=== PATIENT | female | born 1950 | race Caucasian/White ===

== ENCOUNTER 2021-12-28 11:17 | Emergency (ER) | payer MEDICARE, SELFPAY ==
[2021-12-28 11:28] VITALS: BP 219/141; PULSE 65; TEMP 36.6; O2SAT 99; BMI 27.8
[2021-12-28] MEDS: cloNIDine 0.1 mg Tablet PO (12:11)
[2021-12-28] MEDS: lisinopril 20 mg Tablet PO (12:11)
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
[2021-12-28 15:18] VITALS: BP 114/65; PULSE 80; RESP 18; O2SAT 95
== END 2021-12-28 15:20 | disposition home or self-care (01) ==
PROVIDERS: Emergency Provider Emergency Medicine; PCP Internal Medicine
DX: R45.851 Suicidal ideations (principal); I10 Essential (primary) hypertension
CPT/HCPCS: 99283

== ENCOUNTER → 2021-12-31 10:09 | Outpatient (BNVA) | payer MEDICARE, SELFPAY | PROVIDERS: PCP Internal Medicine; Visit Provider Social Worker | DX: F32.A Depression, unspecified (principal) | CPT/HCPCS: 90837; 90834 ==

== ENCOUNTER 2023-02-02 23:31 | Emergency (ER) | payer MEDICARE, SELFPAY ==
[2023-02-02 23:50] VITALS: BP 195/90; PULSE 66; RESP 14; TEMP 36.5; O2SAT 97; BMI 27.3
[2023-02-03 01:56] VITALS: BP 191/98; PULSE 98; RESP 18; O2SAT 98
[2023-02-03 01:58] VITALS: BP 191/98
[2023-02-03] MEDS: cloNIDine 0.1 mg Tablet PO (01:58)
[2023-02-03] MEDS: nitroglycerin 0.4 mg sublingual Tablet SUBLINGUAL (01:59)
[2023-02-03] MEDS: mupirocin oint 22 gm 1 APPLIC TOPICAL (01:59)
--- NOTE | 2023-02-03 02:21 | PC.NURSE ---
MD aware of blood pressure.
[2023-02-03 02:25] VITALS: RESP 18
[2023-02-03] MEDS: oxyCODONE-APAP 5-325 mg Tablet 1 TAB PO (02:25)
--- NOTE | 2023-02-03 02:48 | W.ED.SKABFB ---
HPI - Skin/Abscess/Foreign Bdy General: Chief complaint: Skin/Abscess/Foreign Body Stated complaint: bilateral leg pain Time Seen by Provider: 02/03/23 01:15 Source: patient and other History of Present Illness: 72-year-old female is here with chronic skin ulcers to her bilateral legs. She states that they are very painful. She has been treated on multiple occasions for these with multiple antibiotics and they are just not any better . She denies any fever. She is not vomiting. She is recently been homeless, but has been taken in by a caregiver who brings her to the emergency room this morning. Caregiver also notes that her blood pressure has been high. She has blood pressure medication prescribed, but has not taken more than 1 dose. MD complaint: lesion Onset (ago): week(s) Tetanus up to date: yes Location: LLE and RLE Severity: moderate Quality: burning, stabbing and aching Pain Consistency: constant Relieving factors: none Associated symptoms: Deny fever(s), nausea, rigidity, short of breath or vomiting Review of Systems Const: Denies: fever(s) Card: Denies: chest pain Resp: Denies: dyspnea GI: Denies: nausea or vomiting Physical Exam Const: GENERAL APPEARANCE: cooperative and frail appearing (mildly) HENMT: COMMON NORMALS: normocephalic and atraumatic HEAD & SCALP: normocephalic and atraumatic Neck/C-Spine: GENERAL: Yes trachea midline Chest: CHEST: Yes Symmetrical chest wall rise Resp: COMMON NORMALS: normal respiratory effort, No use of accessory muscles and clear to auscultation bilaterally AUSCULTATION: clear to auscultation bilaterally Cardio: COMMON NORMALS: regular rate and regular rhythm RATE: regular rate RHYTHM: regular rhythm GI: COMMON NORMALS: Soft to palpation PALPATION: Yes Soft to palpation Extremity: NARRATIVE EXTREMITY EXAM: Bilateral lower extremity medial leg stasis ulcers. Granulation tissue present. Discharge present. No surrounding significant cellulitis or streaking. They are tender to touch. Neuro: SANDEEP COMA SCALE: document GCS findings Sandeep coma scale eye opening: Spontaneous Sandeep coma scale verbal response: Orientated Sandeep coma scale motor response: Obey commands [place] coma scale total score: 15 Course Vital Signs: Vital signs: Vital Signs Temperature 97.7 F 02/02/23 23:50 Pulse Rate 98 02/03/23 01:56 Respiratory Rate 18 02/03/23 02:25 Blood Pressure 191/98 02/03/23 01:58 Pulse Oximetry 98 02/03/23 01:56 Oxygen Delivery Me thod Room Air 02/03/23 01:56 MDM - Skin/Abscess/Foreign Bdy Medicial Decision Making Chronic venous stasis ulcers to bilateral legs, without active cellulitis. There is some discharge present. Wounds are cleaned, prepped with mupirocin, and nonstick bandages. We will refer the patient to wound care for her chronic wounds. We will also refer patient for primary care follow-up regarding her blood pressure. She is given a clonidine for acute hypertension that is asymptomatic this morning. She is encouraged to take her home blood pressure medication Discharge Plan Discharge Patient Disposition: Home Clinical Impression: Venous stasis ulcer, Hypertension Condition: Stable Prescriptions: New doxycycline hyclate 100 mg tablet 100 mg PO BID 14 Days Qty: 28 0RF tramadol 50 mg tablet 50 mg PO Q12H PRN (Reason: pain) Qty: 10 0RF No Action Aspir-81 81 mg Tablet,Delayed Release (Dr/Ec) 81 mg PO DAILY PRN (Reason: unknown) Tylenol Ex Str Rapid Release 500 mg Tablet 1,000 - 1,500 mg PO Q6H PRN (Reason: Pain) Discharge Orders: Discharge ED (Routine); Ordered 02/03/23 Ordered By: Tyler Neely Referrals: Kp Giordano MD [Primary Care Provider] - 4-7 days Patient Instructions: Stasis Dermatitis (ED), Hypertension (ED), Stasis Ulcer Activity Restrictions/Additional Instructions: Case management will make a wound care appointment for you. You should get a call from them early this week. Antibiotics as directed. Treat with the cream you were given this morning until that time. They will also make you a primary care follow-up appointment. Take your blood pressure medications as prescribed. Coding Level of Care Code ED Rn Otolaryngology for Elroy Chung
--- NOTE | 2023-02-03 14:51 | PC.SOCIAL ---
Spoke with patients caregiver Butch about follow up. She would like to stay with Dr. Giordano. Called and scheduled follow up appointment for next February 13 at 0730. Butch will talk with Dr. Giordano about HH.
== END 2023-02-03 02:55 | disposition home or self-care (01) ==
PROVIDERS: Emergency Provider Emergency Medicine; PCP Family Medicine Adult Medicine
DX: I83.018 Varicose veins of right lower extremity with ulcer other part of lower leg (principal); I83.028 Varicose veins of left lower extremity with ulcer other part of lower leg; L97.819 Non-pressure chronic ulcer of other part of right lower leg with unspecified severity; L97.829 Non-pressure chronic ulcer of other part of left lower leg with unspecified severity; I10 Essential (primary) hypertension; Z79.82 Long term (current) use of aspirin
CPT/HCPCS: 99283

== ENCOUNTER → 2023-02-06 13:10 | Outpatient (BNVA) | payer MEDICARE, SELFPAY | PROVIDERS: PCP Family Medicine Adult Medicine; Visit Provider Nurse Practitioner Family | DX: S81.852D Open bite, left lower leg, subsequent encounter (principal); S81.851D Open bite, right lower leg, subsequent encounter; X58.XXXD Exposure to other specified factors, subsequent encounter | CPT/HCPCS: 99214 ==

== ENCOUNTER → 2023-02-27 16:07 | Outpatient (BNVA) | payer MEDICARE, SELFPAY | PROVIDERS: PCP Family Medicine Adult Medicine; Visit Provider Nurse Practitioner Family | DX: I96 Gangrene, not elsewhere classified (principal); L97.812 Non-pressure chronic ulcer of other part of right lower leg with fat layer exposed; L97.822 Non-pressure chronic ulcer of other part of left lower leg with fat layer exposed | CPT/HCPCS: 99212 ==